=== PATIENT | female | born 1960 | race Caucasian/White ===

== ENCOUNTER → 2021-07-01 | Outpatient (CLI) | payer BC ==
[~2021-07-01] MED LIST: ALLEGRA-D 24 H1 EACH PO; BENADRYL 25MG C25 MG PO; CIPRO500 MG PO; ESCITALOPRAM OX20 MG PO; LEVOTHYROXINE112 MCG PO; LEVOTHYROXINE125 MCG PO; PYRIDIUM200 MG PO; ZETIA 10 MG TAB10 MG PO; ZOFRAN4 MG PO
== END ==
LOC: MAMO 11:30
DX: Z12.31 Encounter for screening mammogram for malignant neoplasm of breast (principal)
CPT/HCPCS: 77063; 77067